=== PATIENT | male | born 1990 | race American Indian/Alaskan Native ===

== ENCOUNTER 2016-11-21 09:56 | Emergency (ER) | payer OTHER ==
[2016-11-21 10:04] VITALS: BP 152/90
[2016-11-21] MEDS ORDERED: TORADOL ONE (11:26)
[2016-11-21] MEDS ORDERED: FLEXERIL ONE (11:26)
[2016-11-21] MEDS ORDERED: FLEXERIL PO ONE (11:31)
[2016-11-21] MEDS ORDERED: TORADOL IM ONE (11:31)
--- NOTE | 2016-11-21 11:49 | Emergency Department Report ---
HPI - General Chief Complaint: Back Pain/Injury Time Seen by Provider: 11/21/16 11:45 - HPI HPI: he is a 26-year-old male with no prior medical history who presents ED complaining of left-sided lower back pain that radiates down his but times a month. he is aggravated with moving and with several movements. He denies injury or fall. He states taking Goody powder for pain relief. He denies fevers or chills/nausea/vomiting/dysuria ED Past Medical Hx - Past Medical History Previous Medical History?: No - Surgical History Past Surgical History?: Yes Additional Surgical History: Right hand tendon repair - Social History Smoking Status: Former Smoker Substance Use Type: Alcohol, Non Opiate Pain - Medications Home Medications: Home Medications Medication Instructions Recorded Confirmed Last Taken Type Cyclobenzaprine [Flexeril] 10 mg PO QHS PRN #20 tablet 11/21/16 Unknown Rx Ibuprofen [Motrin] 800 mg PO Q8HR PRN #30 tablet 11/21/16 Unknown Rx ED Review of Systems ROS: Stated complaint: BACK PAIN/GENITALS Other details as noted in HPI Constitutional: denies: chills, fever Eyes: denies: eye pain, eye discharge, vision change ENT: denies: ear pain, throat pain Respiratory: denies: cough, shortness of breath, wheezing Cardiovascular: denies: chest pain, palpitations Endocrine: no symptoms reported Gastrointestinal: denies: abdominal pain, nausea, diarrhea Genitourinary: denies: urgency, dysuria Musculoskeletal: back pain. denies: joint swelling, arthralgia Skin: denies: rash, lesions Neurological: denies: headache, weakness, paresthesias Psychiatric: denies: anxiety, depression Hematological/Lymphatic: denies: easy bleeding, easy bruising Physical Exam - Physical Exam Vital Signs: Vital Signs 11/21/16 10:01 Temperature 98.4 F Pulse Rate 65 Respiratory 20 Rate Blood Pressure 152/90 O2 Sat by Pulse 98 Oximetry Physical Exam: GENERAL: Alert and oriented x3, no apparent distress, Normal Gait, atraumatic. HEAD: Head is normocephalic and a-traumatic. NECK: Supple. Non edematous, No carotid bruits. No lymphadenopathy or thyromegaly. No C-spine tenderness LUNGS: Symetrical with respiration, No wheezing, no rales or crackles, CTAB. HEART: S1, S2 present, regular rate and rhythm without murmur, no rubs, no gallops. ABDOMEN: No organomegaly was noted,Positive bowel sounds, soft, and non- distended. . Nontender to palpation on all Quadrants, NO CVA tenderness. EXTREMITIES/MUSCULOSKELETAL: No cyanosis, clubbing, rash, lesions or edema. Full ROM bilaterally. UE/LE Pulses 2+ bilaterally. LE and UE 5+ strength bilaterally, straight leg raise positive bilaterally NEUROLOGIC: The patient is cooperative with no focal neurologic deficits. Cranial nerves II through XII are grossly intact. Normal speech. SKIN: Warm and dry, No lesions, No ulceration or induration present. ED Course Vital Signs 11/21/16 10:01 Temperature 98.4 F Pulse Rate 65 Respiratory 20 Rate Blood Pressure 152/90 O2 Sat by Pulse 98 Oximetry ED Medical Decision Making - Medical Decision Making 26-year-old male presents with lumbar radiculopathy ED course: Patient received Toradol and Flexeril in ED. Discussed with patient to limit physical activity or strenuous activity for the next couple of days. Discussed to follow up with primary care physician for management. Discussed heat therapy to lower back Vital signs are's normal patient is in no acute arrest or distress. Critical care attestation.: If time is entered above; I have spent that time in minutes in the direct care of this critically ill patient, excluding procedure time. ED Disposition Clinical Impression: Lumbar radiculopathy Disposition: DISCHARGED TO HOME OR SELFCARE Is pt being admited?: No Does the pt Need Aspirin: No Condition: Stable Instructions: Lumbar Radiculopathy (ED), Sciatica (ED) Prescriptions: Cyclobenzaprine [Flexeril] 10 mg PO QHS PRN #20 tablet PRN Reason: Muscle Spasm Ibuprofen [Motrin] 800 mg PO Q8HR PRN #30 tablet PRN Reason: Pain Referrals: PRIMARY CARE, [Primary Care Provider] - 3-5 Days LAXMI HELLER MD [Staff Physician] - 3-5 Days GERARD AYALA MD [Staff Physician] - 3-5 Days HARMONY ALEJANDRO MD [Referring] - 3-5 Days [facility] [Outside] - 3-5 Days [facility] [Outside] - 3-5 Days Forms: Work/School Release Form Time of Disposition: 11:51
== END 2016-11-21 12:06 | disposition home or self-care (01) ==
LOC: ED 09:56
DX: M54.16 Radiculopathy, lumbar region (principal); Z87.891 Personal history of nicotine dependence
CPT/HCPCS: 96372; 99282; J1885

== ENCOUNTER 2021-06-17 22:19 | Emergency (ER) | payer SELFPAY ==
[2021-06-18] MEDS ORDERED: ONDANSETRON 4 MG ODT TAB PO ONE (00:15)
[2021-06-18] MEDS ORDERED: oxyCODONE /ACETAMINOPHEN 5-325MG TAB PO ONE (00:15)
[2021-06-18] MEDS ORDERED: dexAMETHasone 20 MG/5 ML VIAL IM ONE (00:15)
[2021-06-18] MEDS ORDERED: KETOROLAC 30 MG/1 ML INJ IM ONE (00:15)
--- NOTE | 2021-06-18 01:55 | Emergency Department Report ---
ED Back Pain/Injury [facility] - General Chief Complaint: Back Pain/Injury Stated Complaint: SEVERE BACK PAIN Source: patient Limitations: No Limitations - History of Present Illness Initial Comments: Patient is a 31-year-old -French male with a history of chronic low back pain who presented to the ED with complaint of acute exacerbation of his chronic low back pain that radiates to the lower extremities bilaterally for the last 1 week, worse in the last 2 days. 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 Patient denies dizziness, syncope, urinary frequency and urgency, chest pain or shortness of breath, numbness and tingling or weakness of lower extremities bilaterally, urinary or bowel incontinence and saddle paresthesia, fever and chills, cough, traumatic injury, abdominal pain, or change in vision or neck pain. MD Complaint: back pain, other (Chronic back pain exacerbation) -: Gradual, month(s) (12) Similar Symptoms Previously: Yes (Chronic low back pain) Place: home Radiation: left leg, right leg Severity: severe Severity scale (0 -10): 8 Quality: sharp, aching Consistency: constant Improves With: supine Worsens With: movement, sitting upright, walking Context: while lifting, turning/twisting, bending Associated Symptoms: denies other symptoms. denies: confusion, weakness, chest pain, numbness, difficulty walking, cough, difficulty urinating, diaphoresis, incontinence, constipation, headaches, abdominal pain, loss of appetite, nausea/vomiting, seizure, shortness of breath, other - Related Data Previous Rx's Medication Instructions Recorded Last Taken Type Cyclobenzaprine [Flexeril] 10 mg PO QHS PRN #20 tablet 11/21/16 Unknown Rx Ibuprofen [Motrin] 800 mg PO Q8HR PRN #30 tablet 11/21/16 Unknown Rx Baclofen 20 mg PO Q12H PRN #30 tablet 06/18/21 Unknown Rx Naproxen 500 mg PO Q12H #30 tablet 06/18/21 Unknown Rx Prednisone [predniSONE 10 mg 10 mg PO .TAPER #1 tab.ds.pk 06/18/21 Unknown Rx (6-Day Pack, 21 Tabs)] traMADoL [Ultram] 50 mg PO Q6HR PRN #12 tablet 06/18/21 Unknown Rx Allergies Allergy/AdvReac Type Severity Reaction Status Date / Time No Known Allergies Allergy Verified 11/21/16 11:30 ED Review of Systems ROS: Stated complaint: SEVERE BACK PAIN Other details as noted in HPI Constitutional: denies: chills, fever Eyes: denies: eye pain, eye discharge, vision change ENT: denies: ear pain, throat pain Respiratory: denies: cough, shortness of breath, wheezing Cardiovascular: denies: chest pain, palpitations Endocrine: no symptoms reported Gastrointestinal: denies: abdominal pain, nausea, vomiting, diarrhea Genitourinary: denies: urgency, dysuria Musculoskeletal: back pain (Low back pain radiating to lower extremities bilaterally). denies: joint swelling, arthralgia Skin: denies: rash, lesions Neurological: denies: headache, weakness, paresthesias Psychiatric: denies: anxiety, depression Hematological/Lymphatic: denies: easy bleeding, easy bruising ED Past Medical Hx - Past Medical History Previous Medical History?: Yes Additional medical history: CYST ON SPINE - Surgical History Past Surgical History?: Yes Additional Surgical History: Right hand tendon repair - Social History Smoking Status: Former Smoker Substance Use Type: Alcohol, Non Opiate Pain - Medications Home Medications: Home Medications Medication Instructions Recorded Confirmed Last Taken Type Cyclobenzaprine [Flexeril] 10 mg PO QHS PRN #20 tablet 11/21/16 Unknown Rx Ibuprofen [Motrin] 800 mg PO Q8HR PRN #30 tablet 11/21/16 Unknown Rx Baclofen 20 mg PO Q12H PRN #30 tablet 06/18/21 Unknown Rx Naproxen 500 mg PO Q12H #30 tablet 06/18/21 Unknown Rx Prednisone [predniSONE 10 mg 10 mg PO .TAPER #1 tab.ds.pk 06/18/21 Unknown Rx (6-Day Pack, 21 Tabs)] traMADoL [Ultram] 50 mg PO Q6HR PRN #12 tablet 06/18/21 Unknown Rx ED Physical Exam - General Limitations: No Limitations General appearance: alert, in no apparent distress - Head Head exam: Present: atraumatic, normocephalic, normal inspection - Eye Eye exam: Present: normal appearance, PERRL, EOMI Pupils: Present: normal accommodation - ENT ENT exam: Present: normal exam, normal orophraynx, mucous membranes moist, TM's normal bilaterally, normal external ear exam - Neck Neck exam: Present: normal inspection, full ROM - Respiratory Respiratory exam: Present: normal lung sounds bilaterally. Absent: respiratory distress, wheezes, rales, stridor, chest wall tenderness, accessory muscle use, decreased breath sounds, prolonged expiratory - Cardiovascular Cardiovascular Exam: Present: normal rhythm, tachycardia, normal heart sounds. Absent: bradycardia, systolic murmur, diastolic murmur, rubs, gallop - GI/Abdominal GI/Abdominal exam: Present: soft, normal bowel sounds. Absent: distended, tenderness, rebound, hyperactive bowel sounds, hypoactive bowel sounds - Extremities Exam Extremities exam: Present: normal inspection, full ROM, normal capillary refill. Absent: tenderness - Back Exam Back exam: Present: normal inspection, full ROM, tenderness (Palpable lumbosacral paraspinal musculoskeletal tenderness), muscle spasm, paraspinal tenderness. Absent: CVA tenderness (R), CVA tenderness (L), vertebral tenderness - Neurological Exam Neurological exam: Present: alert, oriented X3, CN II-XII intact, normal gait, reflexes normal - Psychiatric Psychiatric exam: Present: normal affect, normal mood - Skin Skin exam: Present: warm, dry, intact, normal color. Absent: rash ED Course Vital Signs 06/17/21 22:22 Temperature 98.2 F Pulse Rate 129 H Respiratory 18 Rate Blood Pressure 184/91 O2 Sat by Pulse 88 Oximetry ED Medical Decision Making - Medical Decision Making This is a 31-year-old -French male with a history of chronic low back pain who presented to the ED with complaint of acute exacerbation of his chronic low back pain that radiates to the lower extremities bilaterally for the last 1 week, worse in the last 2 days. 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 In the ED, patient is alert and oriented x3 and is not in any distress. Patient however appears to be in significant pain, crying during the physical exam and was tachycardic. Patient stated that the pain is typical of his chronic low back pain with exacerbation. Patient was therefore treated for pain in the ED and on reevaluation, patient pain is well controlled medication. Patient ambulated fully in the ED with no difficulties. Patient was advised to follow-up with his primary care physician in 5 to 7 days for reevaluation or return to the ED immediately if symptoms get worse. - Differential Diagnosis Chronic back pain; muscle spasm; muscle strain; degenerative disc disease Critical care attestation.: If time is entered above; I have spent that time in minutes in the direct care of this critically ill patient, excluding procedure time. ED Disposition Clinical Impression: Spasm of muscle of lower back Chronic low back pain with bilateral sciatica Qualifiers: Back pain laterality: bilateral Qualified Code(s): M54.42 - Lumbago with sciatica, left side; M54.41 - Lumbago with sciatica, right side; G89.29 - Other chronic pain Disposition: HOME / SELF CARE / HOMELESS Is pt being admited?: No Does the pt Need Aspirin: No Condition: Stable Instructions: Muscle Cramps and Spasms, [id number], Sciatica, [id number], Chronic Back Pain, [id number] Additional Instructions: Take medication with food, drink plenty of fluids and follow-up with your primary care physician in 7 to 10 days for reevaluation. Return to the ED immediately if symptoms get worse. Prescriptions: Baclofen 20 mg PO Q12H PRN #30 tablet PRN Reason: Muscle Spasm Naproxen 500 mg PO Q12H #30 tablet Prednisone [predniSONE 10 mg (6-Day Pack, 21 Tabs)] 10 mg PO .TAPER #1 tab.ds.pk traMADoL [Ultram] 50 mg PO Q6HR PRN #12 tablet PRN Reason: Pain Referrals: [facility] [Provider Group] - 3-5 Days Forms: Work/School Release Form(ED) Time of Disposition: 01:59 Print Language: EQUATORIAL GUINEAN
[2021-06-18 02:41] VITALS: BP 149/89
== END 2021-06-18 02:41 | disposition home or self-care (01) ==
LOC: ED 22:19
DX: M62.830 Muscle spasm of back (principal); M54.42 Lumbago with sciatica, left side; M54.41 Lumbago with sciatica, right side; G89.29 Other chronic pain; Z87.891 Personal history of nicotine dependence; Z79.899 Other long term (current) drug therapy
CPT/HCPCS: 96372; 99282; J1100; J1885; J3490; Q0162